=== PATIENT | female | born 1965 | race Caucasian/White ===

== ENCOUNTER 2017-05-12 13:05 | Emergency (ER) | payer MEDICAID ==
[2017-05-12 13:18] VITALS: BP 114/49; PULSE 72; RESP 16; TEMP 97.9; O2SAT 96
--- NOTE | 2017-05-12 13:28 | EDPHY ---
H & P Time Seen by Provider: 05/12/17 13:22 HPI/ROS: CHIEF COMPLAINT: Right hand injury HISTORY OF PRESENT ILLNESS: Fell 48 hr ago landed without on the ground. Presents with pain and swelling. REVIEW OF SYSTEMS: No wrist or elbow symptoms PAST MEDICAL HISTORY: Chronic peripheral neuropathy spine surgery General Appearance: Alert and conversant, cooperative. Swelling and tenderness on the dorsum of the right hand on the primarily area of the index and middle finger metacarpals. No rotation with making a fist. Normal motor sensory and capillary refill distally. Normal range of motion of the wrist without snuffbox tenderness. Not hot to the touch or red, no lymphangitis. Emergency Department course/MDM: X-ray performed. 1407: Personally interpreted as negative. Declined Splint, ice, symptomatic treatment, orthopedic follow-up. Smoking Status: Former smoker Constitutional: Initial Vital Signs Temperature (C) 36.6 C 05/12/17 13:15 Heart Rate 72 05/12/17 13:15 Respiratory Rate 16 05/12/17 13:15 Blood Pressure 114/49 L 05/12/17 13:15 O2 Sat (%) 96 05/12/17 13:15 O2 Delivery Mode Room Air Allergies/Adverse Reactions: No Known Allergies Allergy (Verified 05/12/17 13:14) Home Medications: Medication Instructions Recorded Williamson Seal 01/04/12 Naproxen 01/04/12 Vits 01/04/12 Baclofen 05/12/17 Hrt 05/12/17 traMADol 05/12/17 MDM/Departure - MDM Imaging Results: Imaging Impressions Hand X-Ray 05/12/17 13:26 Impression: No definite fracture of the right hand. Imaging: I viewed and interpreted images myself - Depart Disposition: Home, Routine, Self-Care Clinical Impression: Contusion of right hand Qualifiers: Encounter type: initial encounter Qualified Code(s): S60.221A - Contusion of right hand, initial encounter Condition: Good Instructions: Contusion in Adults (ED) Referrals: PORFIRIO ARCEO,Bernie [Primary Care Provider] - As per Instructions Dc Marin MD [Medical Doctor] - 3-4 days, if not improved
== END 2017-05-12 14:23 | disposition home or self-care (01) ==
DX: S60.221A Contusion of right hand, initial encounter (principal); Z87.891 Personal history of nicotine dependence; W18.39XA Other fall on same level, initial encounter; Y99.8 Other external cause status

== ENCOUNTER → 2018-05-29 | Outpatient (CLI) | payer MEDICAID | LOC: FIMAGING 15:16 | PROVIDERS: ATTEND Family Medicine | DX: M25.551 Pain in right hip (principal); M51.36 Other intervertebral disc degeneration, lumbar region ==